=== PATIENT | female | born 1960 | race Caucasian/White ===

== ENCOUNTER 2016-08-20 17:29 | Emergency (ER) | payer OTHER ==
[~2016-08-20] VITALS: Ht 162.6 cm; Wt 95.3 kg
[2016-08-20 18:44] VITALS: BP 169/93
[2016-08-20] MEDS ORDERED: CYCLOBENZAPRINE 10 MG TABLET. PO ONE (19:15)
[2016-08-20] MEDS ORDERED: NAPROXEN 500 MG TABLET PO STA (19:15)
[2016-08-20] MEDS ORDERED: HYDROCODONE/APAP 5/325MG TABLET. PO ONE (19:15)
[2016-08-20] MEDS ORDERED: HYDR-971 PO (19:41)
[2016-08-20] MEDS ORDERED: CYCL10TA2 PO (19:41)
[2016-08-20] MEDS ORDERED: NAPR500T8 PO (19:41)
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
== END 2016-08-20 19:55 | disposition home or self-care (01) ==
LOC: ER 17:29
DX: M54.5 Low back pain (principal); M25.512 Pain in left shoulder; V49.49XA Driver injured in collision with other motor vehicles in traffic accident, initial encounter; Y93.89 Activity, other specified; Y92.89 Other specified places as the place of occurrence of the external cause; Y99.8 Other external cause status
CPT/HCPCS: 99284